=== PATIENT | male | born 1995 | race Caucasian/White ===

== ENCOUNTER 2017-08-17 11:55 | Emergency (ER) | payer OTHER ==
--- NOTE | 2017-08-17 11:59 | EDM.PDOC ---
ED HPI GENERAL MEDICAL PROBLEM - General Chief Complaint: Trauma Stated Complaint: AMBULANCE Time Seen by Provider: 08/17/17 11:57 - History of Present Illness INITIAL COMMENTS - FREE TEXT/NARRATIVE: HISTORY AND PHYSICAL: History of present illness: The patient is an approximately [id number] male who arrives via BLS ambulance after having an approximately 3500 pound weight impact his chest wall area while at work. According to EMS on their arrival the patient was asystolic on the monitor and no pulse and CPR had been initiated by bystanders. Because they are a BLS ambulance they were unable to obtain an airway or IV access and transported the patient here. The total down time prior to arrival here in the ED was about 1 hour per reports. On arrival here the patient is unable to offer any information and he is unconscious and continuous CPR via the Pedro was being performed and the patient was being bagged. Please see below progress in the ED for further information. Patient's prior medical history surgical history social and family history is unable to be obtained at this time. Review of systems: As per history of present illness and below otherwise all systems reviewed and negative. Past medical history: As per history of present illness and as reviewed below otherwise noncontributory. Surgical history: As per history of present illness and as reviewed below otherwise noncontributory. Social history: No reported history of drug or alcohol abuse. Family history: As per history of present illness and as reviewed below otherwise noncontributory. Physical exam: General: Well-developed well-nourished male arrives via EMS with oxygen being delivered by bag valve mask and CPR in progress. There is no IV access. The patient is overall pale and has no spontaneous movements breath sounds or heart rate. HEENT: Atraumatic, normocephalic, pupils are fixed and moderately dilated negative scleral icterus,there is conjunctival pallor there is no evidence of any gross facial or skull trauma mucous membranes tacky, throat clear, neck supple, nontender, trachea midline.There is a scant amount of blood in the oropharynx. Neck is diffusely swollen due to soft tissue edema/subcutaneous air although crepitus is not appreciated in the trachea appears to be palpated at midline Lungs: There is air exchange but very severely diminished bilaterally with bagging and after ET tube was placed the same is true there is diffuse soft tissue swelling bilateral chest sanford more prominent on the right anterior axillary midaxillary and posterior axillary lines where there is ecchymosis some crepitus and diffuse swelling appreciated. I'm unable to palpate the rib cage due to the diffuse amount of swelling here and it is circumferential.. Heart: The patient has no spontaneous heartbeat or heart sounds. Abdomen: Abdomen has some moderate distention and is firm to touch and bowel sounds are absent. Pelvis: Stable there is no gross palpable deformities appreciated Genitourinary: Normal male with diffuse swelling of the scrotal area but no blood at the urethral meatus Rectal: Deferred. Extremities: Atraumatic appearing throughout without any gross visible or palpable deformities the peripheral extremities are grossly pale and cool to touch Neuro: Unable to be assessed as patient is unresponsive and has no spontaneous breath sounds heartbeat or movements Skin: Cool to touch throughout and incredibly pallor distally as well as at the core. Soft tissue injuries are as described above on the chest wall areas. Back: There are no gross midline step-offs or defects appreciated and there is diffuse ecchymosis and erythema/soft tissue swelling of the posterior right back area Diagnostics: [] Therapeutics: Please see code sheet Please note that the patient's arrival time was 11:40 AM and despite obtaining an airway and giving one round of epi and atropine there was no pulse or spontaneous rhythm and the patient had been down for 1 hour so a trauma code was called at 1149. Dr. Delacruz was present throughout the care of this patient. He has also placed a formal consult in the computer. Procedure note: As we had no IV access a simple Betadine prep was performed at the right groin area and using a 8.5 Fr Cordis venous access was obtained on the first attempt and IV fluids and all meds were given through this access. There are no complications with this procedure. Impression: Traumatic arrest status post significant blunt chest wall trauma Definitive disposition and diagnosis as appropriate pending reevaluation and review of above. Review of Systems - Review of Systems Review Of Systems: Unable To Obtain ED EXAM, GENERAL - Physical Exam Exam: See Below (See dictation) Course - Orders/Labs/Meds Orders: Active Orders 24 hr Category Date Time Status Notify Provider Consults [RC] ASDIRECTED Care 08/17/17 12:07 Ordered Consult to Physician [CONS] Stat Cons 08/17/17 12:06 Ordered Departure - Departure Time of Disposition: 11:50 Disposition: 20 Condition: Critical Clinical Impression: Traumatic cardiac arrest - Discharge Information Forms: ED Department Discharge - My Orders Last 24 Hours: My Active Orders 08/17/17 12:06 Consult to Physician [CONS] Stat 08/17/17 12:07 Notify Provider Consults [RC] ASDIRECTED - Assessment/Plan Last 24 Hours: My Active Orders 08/17/17 12:06 Consult to Physician [CONS] Stat 08/17/17 12:07 Notify Provider Consults [RC] ASDIRECTED
--- NOTE | 2017-08-17 14:03 | PCM.CONS ---
H&P History of Present Illness - General Date of Service: 08/17/17 Admit Problem/Dx: Trauma Code activation Source of Information: EMS, RN, Other () History Limitations: Reports: Other (Cardiac/trauma arrest) - History of Present Illness Initial Comments - Free Text/Narative: 22 y/o gentleman struck in the chest at work by a 3000# tong. 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 Patient was transported via [facility] to [facility] with CPR in progress. There were no signs of life on scene. 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) General: Other (Full arrest with CPR in progress) HEENT: Other (Pupils fixed and dilated) Lungs: Decreased Breath Sounds, Other (Large amount of SQ emphysema) Cardiovascular: Other (Asystole on monitor) GI/Abdominal Exam: Distended (Male) Exam: Scrotal Swelling (massive subcutaneous air) Peripheral Pulses: 0: Posterior Tibial (L), Posterior Tibial (R), Dorsalis Pedis (L), Dorsalis Pedis (R) Skin: Cool, Other (lower extremities very pale) Consult PN Assessment/Plan (1) Blunt chest trauma SNOMED Code(s): 419338508 Code(s): S29.8XXA - OTHER SPECIFIED INJURIES OF THORAX, INITIAL ENCOUNTER Priority: High Current Visit: Yes Qualifiers: Encounter type: initial encounter Qualified Code(s): S29.8XXA - Other specified injuries of thorax, initial encounter (2) Subcutaneous emphysema due to trauma SNOMED Code(s): 81459624 Code(s): T79.7XXA - TRAUMATIC SUBCUTANEOUS EMPHYSEMA, INITIAL ENCOUNTER Priority: High Current Visit: Yes Qualifiers: Encounter type: initial encounter Qualified Code(s): T79.7XXA - Traumatic subcutaneous emphysema, initial encounter (3) Scrotal swelling SNOMED Code(s): 225797461 Code(s): N50.89 - OTHER SPECIFIED DISORDERS OF THE MALE GENITAL ORGANS Priority: High Current Visit: Yes (4) Traumatic cardiac arrest SNOMED Code(s): 683164481 Code(s): I46.9 - CARDIAC ARREST, CAUSE UNSPECIFIED Priority: High Current Visit: Yes Problem List Initiated/Reviewed/Updated: Yes Plan: Upon my arrival, patients pupils were fixed and dilated. There were no spontaneous signs of life. CPR via Bam device in place. ET tube was in place with controlled respirations. EKG showed asystole. Patient had a massive amount of subcutaneous emphysema in his chest, back and scrotum. Extremities were pasty white and cool to touch. Given the mechanism of injury, the fact that CPR had been ongoing for about one hour and there was no ROSC, code was called and CPR discontinued. See resuscitation sheet as to time code was called.
--- NOTE | 2017-08-17 14:33 | PCM.CONS ---
H&P History of Present Illness - General Admit Problem/Dx: Trauma Code activation H&P Review of Systems - Review of Systems: Review Of Systems: Unable To Obtain Exam - Exam Exam: See Below - Exam Quality Assessment: Other (ET tube in place) General: Other (No spontaneous signs of life.) HEENT: Other (Pupils fixed and dilated) Neck: Lymphadenopathy Lungs: Other (Bilateral breath sounds only when bagging patient.) Cardiovascular: Other (No spontaneous cardiac activity.) GI/Abdominal Exam: Distended (Male) Exam: Other (Scrotal emphysema) Rectal (Males) Exam: Deferred Back Exam: Other (SQ emphysema) Extremities: Pallor, Other (Cold to touch. No palpable pulses.) Skin: Warm, Dry, Intact Neurological: Other (No response) Consult PN Assessment/Plan (1) Blunt chest trauma SNOMED Code(s): 118854304 Code(s): S29.8XXA - OTHER SPECIFIED INJURIES OF THORAX, INITIAL ENCOUNTER Priority: High Current Visit: Yes Qualifiers: Encounter type: initial encounter Qualified Code(s): S29.8XXA - Other specified injuries of thorax, initial encounter (2) Subcutaneous emphysema due to trauma SNOMED Code(s): 89661522 Code(s): T79.7XXA - TRAUMATIC SUBCUTANEOUS EMPHYSEMA, INITIAL ENCOUNTER Priority: High Current Visit: Yes Qualifiers: Encounter type: initial encounter Qualified Code(s): T79.7XXA - Traumatic subcutaneous emphysema, initial encounter (3) Scrotal swelling SNOMED Code(s): 081586857 Code(s): N50.89 - OTHER SPECIFIED DISORDERS OF THE MALE GENITAL ORGANS Priority: High Current Visit: Yes (4) Traumatic cardiac arrest SNOMED Code(s): 009994910 Code(s): I46.9 - CARDIAC ARREST, CAUSE UNSPECIFIED Priority: High Current Visit: Yes Problem List Initiated/Reviewed/Updated: Yes Plan: Upon my arrival, patients pupils were fixed and dilated. There were no spontaneous signs of life. CPR via Bam device in place. ET tube was in place with controlled respirations. EKG showed asystole. Patient had a massive amount of subcutaneous emphysema in his chest, back and scrotum. Extremities were pasty white and cool to touch. Given the mechanism of injury, the fact that CPR had been ongoing for about one hour and there was no ROSC, code was called and CPR discontinued. See resuscitation sheet as to time code was called.
== END 2017-08-17 13:20 | disposition expired ==
LOC: MW.ED 11:55 → EDBD 11:55 → MW.ED 13:20
DX: I46.9 Cardiac arrest, cause unspecified (principal); S20.212A Contusion of left front wall of thorax, initial encounter; S20.211A Contusion of right front wall of thorax, initial encounter; X58.XXXA Exposure to other specified factors, initial encounter; Y92.69 Other specified industrial and construction area as the place of occurrence of the external cause; Y99.0 Civilian activity done for income or pay
CPT/HCPCS: 31500; 92950; 99285; G0390